=== PATIENT | female | born 1975 | race African-American/Black ===

== ENCOUNTER → 2016-12-20 | Outpatient (REF) | payer BC ==
[2016-12-20 17:43] LABS: BASO % 0.5 % (0.0-1.0); EOS # 0.1 10^3/uL (0.0-0.50); EOS % 1.4 % (0.0-3.0); IMMATURE GRANULOCYTE % 0.3 % (0-0); LYMPH # 3.1 10^3/uL (1.5-4.5); MEAN CORPUSCULAR HEMOGLOBIN 28.7 pg (27.0-33.0); MEAN CORPUSCULAR HGB CONC 31.6 g/dl (32.0-36.5); MEAN CORPUSCULAR VOLUME 90.8 fl (80.0-96.0); MONO # 0.5 10^3/uL (0.0-0.8); MONO % 5.8 % (0.0-5.0); NEUTROPHILS # 4.2 10^3/uL (1.8-7.7); PLATELET COUNT, AUTOMATED 415 10^3/uL (150-450); RED CELL DISTRIBUTION WIDTH 13.4 % (11.5-14.5)
[2016-12-20 18:53] LABS: ERYTHROCYTE SEDIMENTATION RATE 43 mm/hr (0-20)
[2016-12-20 19:03] LABS: URIC ACID 4.7 MG/DL (2.6-6.0)
[2016-12-24 00:06] LABS: Lyme Disease IgG/IgM Antibodie <0.91 ISR (0.00-0.90); Lyme Disease IgM Ab Quantitati <0.80 index (0.00-0.79)
== END ==
LOC: M LABDRAW1 13:40
PROVIDERS: ATTEND Physician Assistant
DX: M19.072 Primary osteoarthritis, left ankle and foot (principal)

== ENCOUNTER → 2020-05-08 | Outpatient (CLI) | payer OTHER ==
[2020-05-08 08:38] LABS: HEMOGLOBIN A1c 5.4 %
[2020-05-08 09:01] LABS: ALBUMIN 3.6 GM/DL (3.2-5.2); ALT/SGPT 13 U/L (12-78); BILIRUBIN,TOTAL 0.5 MG/DL (0.2-1.0); BLOOD UREA NITROGEN 14 MG/DL (7-18); CALCIUM LEVEL 8.6 MG/DL (8.5-10.1); CARBON DIOXIDE LEVEL 26 MEQ/L (21-32); CHLORIDE LEVEL 103 MEQ/L (98-107); CHOLESTEROL LEVEL 162 MG/DL (<200); CHOLESTEROL RISK RATIO 3.857 (<5); CREATININE FOR GFR 0.99 MG/DL (0.55-1.30); FREE T4 1.12 NG/DL (0.76-1.46); GLOMERULAR FILTRATION RATE > 60.0 (>58); GLUCOSE, FASTING 100 MG/DL (70-100); HDL CHOLESTEROL 42 MG/DL (>40); LDL CHOLESTEROL 107 MG/DL (<100); NON-HDL-C 120 MG/DL; POTASSIUM SERUM 3.5 MEQ/L (3.5-5.1); SODIUM LEVEL 139 MEQ/L (136-145); TOTAL PROTEIN 7.1 GM/DL (6.4-8.2); TRIGLYCERIDES LEVEL 65 MG/DL (<150)
[2020-05-09 13:07] LABS: ANTINUCLEAR ANTIBODIES DIRECT Negative (Negative)
== END ==
LOC: M LAB 07:21
PROVIDERS: ATTEND Physician Assistant
DX: E66.01 Morbid (severe) obesity due to excess calories (principal)

== ENCOUNTER 2020-06-14 10:59 | Emergency (ER) | payer OTHER ==
[~2020-06-14] VITALS: Ht 172.7 cm; Wt 149.5 kg
[2020-06-14] MEDS ORDERED: Black Seed Oil PO (11:22)
[2020-06-14] MEDS ORDERED: AZO1CAP2 PO (11:22)
[2020-06-14] MEDS ORDERED: B-12100010 PO (11:22)
[2020-06-14] MEDS ORDERED: BURDOCK ROOT PO (11:22)
[2020-06-14] MEDS ORDERED: CHEL50TA2 PO (11:22)
[2020-06-14] MEDS ORDERED: HYDR-3490 (11:22)
[2020-06-14] MEDS ORDERED: PENI500T (11:22)
[2020-06-14] MEDS ORDERED: MELO15TA28 PO (11:22)
[2020-06-14] MEDS ORDERED: DEBL1TAB (11:22)
[2020-06-14] MEDS ORDERED: CALC600T61 PO (11:22)
[2020-06-14] MEDS ORDERED: NS 1,000 ML IV ONE (13:25)
[2020-06-14 13:26] LABS: BASO # 0.1 10^3/uL (0.0-0.2); BASO % 0.4 % (0.0-1.0); EOS % 0.1 % (0.0-3.0); HEMATOCRIT 41.4 % (36.0-47.0); HEMOGLOBIN 13.3 g/dl (12.0-15.5); LYMPH % 14.8 % (24.0-44.0); MEAN CORPUSCULAR HEMOGLOBIN 29.3 pg (27.0-33.0); MEAN CORPUSCULAR HGB CONC 32.1 g/dl (32.0-36.5); MEAN CORPUSCULAR VOLUME 91.2 fl (80.0-96.0); MONO # 0.9 10^3/uL (0.0-0.8); MONO % 6.8 % (2.0-8.0); NEUTROPHILS # 10.7 10^3/uL (1.5-8.5); NEUTROPHILS % 77.5 % (36.0-66.0); PLATELET COUNT, AUTOMATED 356 10^3/uL (150-450); RED BLOOD COUNT 4.54 10^6/uL (4.00-5.40); WHITE BLOOD COUNT 13.8 10^3/uL (4.0-10.0)
[2020-06-14] MEDS ORDERED: ISOVUE-370 76% 100ML VIAL As Ordered ONE (13:32)
[2020-06-14 13:43] LABS: ERYTHROCYTE SEDIMENTATION RATE 67 mm/hr (0-20)
--- NOTE | 2020-06-14 14:12 | REP ---
INDICATION: R lower jaw and neck swelling, r/o abscess. COMPARISON: None. TECHNIQUE: CT neck performed following the intravenous administration of 75 cc of Isovue 370. Sagittal and coronal reconstruction images are performed. FINDINGS: There is an enlarged lymph node just posterior to the right submandibular gland measuring 1.6 cm in short axis dimension. Multiple adjacent subcentimeter lymph nodes are seen in the right neck soft tissues. There is associated inflammatory stranding of fat in that region. There is thickening of the deeper right parapharyngeal soft tissues. There is thickening of the right piriform sinus and right aryepiglottic fold. There is no abscess identified. Several small lymph nodes in the left side of the neck are not significantly enlarged. The parotid and submandibular glands appear unremarkable. The thyroid demonstrates no definite nodule. There are mild degenerative changes of the spine without compression deformity. IMPRESSION: No abscess identified. Mild adenopathy in the right neck soft tissues with diffuse inflammatory changes in the superficial and deep soft tissues of the right neck. Thickening of right piriform sinus and right aryepiglottic fold. Follow-up recommended. <Electronically signed by Moreno Sol > 06/14/20 [id number]
[2020-06-14] MEDS ORDERED: dexameTHASONE 20MG/5ML VIAL (J1100 PER 1MG) IV ONE (14:40)
[2020-06-14] MEDS ORDERED: AMPICILLIN SOD/SULBACTAM SOD 3 GM in D5W MINI-BAG PLUS 100 ML IV ONE ×2 (14:40→20:40)
[2020-06-14] MEDS ORDERED: AUGM875T28 PO (15:31)
[2020-06-14] MEDS ORDERED: MEDR4PAK PO (15:31)
[2020-06-14 21:17] VITALS: BP 143/91
--- NOTE | 2020-06-14 22:00 | ED PDOC ---
Post-Departure Follow-Up dr sanz faxed formal report of ct check for fu Vashti Gates MD Jun 14, 2020 22:00
== END 2020-06-14 21:18 | disposition home or self-care (01) ==
LOC: M ED 10:59
DX: L03.221 Cellulitis of neck (principal); K02.9 Dental caries, unspecified; I10 Essential (primary) hypertension; Z88.8 Allergy status to other drugs, medicaments and biological substances; Z88.2 Allergy status to sulfonamides; Z91.040 Latex allergy status; Z79.899 Other long term (current) drug therapy; Z79.2 Long term (current) use of antibiotics
CPT/HCPCS: 70491; 80047; 83605; 84702; 85025; 85652; 86140; 87040; 96361; 96365; 96375; 99284; J1100; Q9967

== ENCOUNTER → 2020-07-25 | Outpatient (CLI) | payer OTHER ==
[~2020-07-25] MED LIST: AUGM875T28 PO; AZO1CAP2 PO; B-12100010 PO; BURDOCK ROOT PO; Black Seed Oil PO; CALC600T61 PO; CHEL50TA2 PO; DEBL1TAB; HYDR-3490; ISOVUE-370 76% 100ML VIAL As Ordered ONE; MEDR4PAK PO; MELO15TA28 PO; PENI500T
--- NOTE | 2020-07-25 17:39 | REPVR ---
PROCEDURE INFORMATION: Exam: CT Neck With Contrast Exam date and time: 07/25/2020 4:47 PM Age: 44 years old Clinical indication: Other: Other somatoform disorders TECHNIQUE: Imaging protocol: Computed tomography images of the neck with contrast. Radiation optimization: All CT scans at this facility use at least one of these dose optimization techniques: automated exposure control; mA and/or kV adjustment per patient size (includes targeted exams where dose is matched to clinical indication); or iterative reconstruction. Contrast material: ISOVUE 370; Contrast volume: 75 ml; Contrast route: INTRAVENOUS (IV); COMPARISON: CT Neck with contrast 06/14/2020 1:34 PM FINDINGS: Nasopharynx: Unremarkable. Dental: Dental caries. Periapical hypodensity identified within the maxilla bilaterally, consistent with periodontal disease. There is a stable defect or dental alveolus within the right side of the mandible. Oropharynx: A tiny calcification is identified within the right palatine tonsil. No significant swelling of the palatine tonsils. Mild symmetric prominence of the lingual tonsils, similar to the prior study. Hypopharynx: Unremarkable. Larynx: Unremarkable.Normal epiglottis. Retropharyngeal space: Unremarkable. Submandibular/Parotid glands: See "Lymph nodes" finding. Thyroid: No enlarged or calcified nodules. Lymph nodes: Subcentimeter intraparotid lymph nodes or nodules are identified bilaterally, without progression. No swelling of the bilateral parotid or submandibular glands. Enlarged bilateral level 2 cervical lymph nodes are identified. One of these lymph nodes on the right side measures 1.7 x 1.3 cm, which has decreased in size. These lymph nodes are nonspecific as to etiology. Trachea: Unremarkable. Lungs: Unremarkable as visualized. Bones/joints: Straightening of the lordotic curvature of the cervical spine. Degenerative changes identified at multiple cervical levels. Soft tissues: Mild soft tissue swelling anteriorly. IMPRESSION: 1. Mild soft tissue swelling anteriorly. 2. Enlarged bilateral level 2 cervical lymph nodes are identified. One of these lymph nodes on the right side measures 1.7 x 1.3 cm, which has decreased in size. These lymph nodes are nonspecific as to etiology. 3. Mild symmetric prominence of the lingual tonsils, similar to the prior study. 4. Additional findings described above. Electronically signed by: Domingo Harris On 07/25/2020 17:39:49 PM
== END ==
LOC: M RAD 16:26
PROVIDERS: ATTEND Physician Assistant
DX: F45.8 Other somatoform disorders (principal)
CPT/HCPCS: 70491; Q9967

== ENCOUNTER → 2021-04-19 | Outpatient (CLI) | payer OTHER ==
[~2021-04-19] MED LIST changes: -ISOVUE-370 76% 100ML VIAL As Ordered ONE
== END ==
LOC: M WHC 08:42
PROVIDERS: ATTEND Physician Assistant
DX: Z12.31 Encounter for screening mammogram for malignant neoplasm of breast (principal)

== ENCOUNTER → 2021-05-02 | Outpatient (CLI) | payer OTHER | LOC: M WHC 08:46 | PROVIDERS: ATTEND Family Medicine | DX: R92.8 Other abnormal and inconclusive findings on diagnostic imaging of breast (principal) | CPT/HCPCS: 76642; 77065; G0279 ==

== ENCOUNTER → 2021-06-05 | Outpatient (CLI) | payer OTHER ==
[2021-06-05 09:50] LABS: BASO # 0.1 10^3/uL (0.0-0.2); BASO % 0.7 % (0.0-1.0); EOS # 0.1 10^3/uL (0.0-0.5); HEMATOCRIT 36.8 % (36.0-47.0); HEMOGLOBIN 12.1 g/dl (12.0-15.5); LYMPH # 2.4 10^3/uL (1.5-5.0); LYMPH % 33.8 % (24.0-44.0); MEAN CORPUSCULAR HGB CONC 32.9 g/dl (32.0-36.5); MEAN CORPUSCULAR VOLUME 91.1 fl (80.0-96.0); MONO # 0.4 10^3/uL (0.0-0.8); MONO % 6.2 % (2.0-8.0); NEUTROPHILS # 4.1 10^3/uL (1.5-8.5); NEUTROPHILS % 58.2 % (36.0-66.0); PLATELET COUNT, AUTOMATED 361 10^3/uL (150-450); RED BLOOD COUNT 4.04 10^6/uL (4.00-5.40); WHITE BLOOD COUNT 7.1 10^3/uL (4.0-10.0)
[2021-06-05 09:58] LABS: ALT/SGPT 14 U/L (12-78); BILIRUBIN,TOTAL 0.5 MG/DL (0.2-1.0); BLOOD UREA NITROGEN 14 MG/DL (7-18); CALCIUM LEVEL 9.3 MG/DL (8.5-10.1); CARBON DIOXIDE LEVEL 30 MEQ/L (21-32); CHLORIDE LEVEL 105 MEQ/L (98-107); CREATININE FOR GFR 1.02 MG/DL (0.55-1.30); GLOMERULAR FILTRATION RATE > 60.0 (>58); GLUCOSE, FASTING 94 MG/DL (70-100); POTASSIUM SERUM 4.2 MEQ/L (3.5-5.1); SODIUM LEVEL 139 MEQ/L (136-145)
[2021-06-05 09:59] LABS: ALBUMIN 3.9 GM/DL (3.2-5.2); CHOLESTEROL LEVEL 142 MG/DL (<200); CHOLESTEROL RISK RATIO 3.837 (<5); FREE T4 1.09 NG/DL (0.76-1.46); HDL CHOLESTEROL 37 MG/DL (>40); LDL CHOLESTEROL 95 MG/DL (<100); NON-HDL-C 105 MG/DL; THYROID STIMULATING HORMONE 0.511 uIU/ML (0.358-3.740); TOTAL PROTEIN 7.3 GM/DL (6.4-8.2); TRIGLYCERIDES LEVEL 52 MG/DL (<150)
[2021-06-05 10:04] LABS: HEMOGLOBIN A1c 5.6 %
== END ==
LOC: M LAB 08:50
PROVIDERS: ATTEND Physician Assistant
DX: E66.01 Morbid (severe) obesity due to excess calories (principal)

== ENCOUNTER → 2021-12-13 | Outpatient (CLI) | payer OTHER ==
[2021-12-13 09:41] LABS: BASO # 0.1 10^3/uL (0.0-0.2); EOS # 0.1 10^3/uL (0.0-0.5); EOS % 0.8 % (0.0-3.0); HEMATOCRIT 38.2 % (36.0-47.0); HEMOGLOBIN 11.9 g/dl (12.0-15.5); LYMPH # 2.7 10^3/uL (1.5-5.0); LYMPH % 43.8 % (24.0-44.0); MEAN CORPUSCULAR HEMOGLOBIN 28.9 pg (27.0-33.0); MEAN CORPUSCULAR HGB CONC 31.2 g/dl (32.0-36.5); MEAN CORPUSCULAR VOLUME 92.7 fl (80.0-96.0); MONO # 0.4 10^3/uL (0.0-0.8); MONO % 6.2 % (2.0-8.0); NEUTROPHILS # 2.9 10^3/uL (1.5-8.5); PLATELET COUNT, AUTOMATED 323 10^3/uL (150-450); RED BLOOD COUNT 4.12 10^6/uL (4.00-5.40); WHITE BLOOD COUNT 6.1 10^3/uL (4.0-10.0)
[2021-12-13 10:25] LABS: ALBUMIN 3.8 GM/DL (3.2-5.2); ALT/SGPT 12 U/L (12-78); BILIRUBIN,TOTAL 0.4 MG/DL (0.2-1.0); BLOOD UREA NITROGEN 16 MG/DL (7-18); CALCIUM LEVEL 9.1 MG/DL (8.5-10.1); CARBON DIOXIDE LEVEL 29 MEQ/L (21-32); CHLORIDE LEVEL 105 MEQ/L (98-107); CHOLESTEROL LEVEL 144 MG/DL (<200); CHOLESTEROL RISK RATIO 3.428 (<5); CREATININE FOR GFR 0.93 MG/DL (0.55-1.30); FREE T4 1.11 NG/DL (0.76-1.46); GLOMERULAR FILTRATION RATE > 60.0 (>58); GLUCOSE, FASTING 95 MG/DL (70-100); HDL CHOLESTEROL 42 MG/DL (>40); LDL CHOLESTEROL 90 MG/DL (<100); NON-HDL-C 102 MG/DL; POTASSIUM SERUM 3.9 MEQ/L (3.5-5.1); SODIUM LEVEL 137 MEQ/L (136-145); THYROID STIMULATING HORMONE 0.598 uIU/ML (0.358-3.740); TOTAL PROTEIN 7.5 GM/DL (6.4-8.2); TRIGLYCERIDES LEVEL 60 MG/DL (<150)
== END ==
LOC: M LAB 09:13
PROVIDERS: ATTEND Family Medicine
DX: I10 Essential (primary) hypertension (principal); Z13.29 Encounter for screening for other suspected endocrine disorder

== ENCOUNTER → 2023-04-28 | Outpatient (CLI) | payer OTHER ==
[2023-04-29 09:11] LABS: HERPES ZOSTER, VARICELLA IgG 1796 index (Immune >165)
== END ==
LOC: M LAB 10:58
PROVIDERS: ATTEND Nurse Practitioner Adult Health
DX: Z11.59 Encounter for screening for other viral diseases (principal)